=== PATIENT | male | born 1975 | race African-American/Black ===

== ENCOUNTER 2021-12-27 13:51 | Inpatient (IN) | payer OTHER ==
[~2021-12-27] VITALS: Ht 190.5 cm; Wt 63.5 kg
[2021-12-27] MEDS ORDERED: IV NS 0.9% 1,000 ML BAG IV ONE (14:30)
--- NOTE | 2021-12-27 14:35 | NUR ---
PT TAKEN TO CT VIA DANIELA
--- NOTE | 2021-12-27 14:55 | NUR ---
PT RETURNED FROM RADIOLOGY
[2021-12-27 14:59] LABS: BASOPHILS % (AUTO) 0.1 % (0.0-2.0); EOSINOPHILS % (AUTO) 1.1 % (0.0-6.0); HEMATOCRIT 22 % (39-51); HEMOGLOBIN 7.4 g/dL (13.5-17.5); LYMPHOCYTES # (AUTO) 0.4 K/uL (0.8-4.8); LYMPHOCYTES % (AUTO) 5.9 % (20.0-44.0); MEAN CORPUSCULAR HGB CONC 34 g/dl (31.0-36.0); MEAN CORPUSCULAR VOLUME 88 fL (80-96); MONOCYTES # (AUTO) 0.6 K/uL (0.1-1.30); MONOCYTES % (AUTO) 8.6 % (2.0-12.0); NEUTROPHILS # (AUTO) 5.6 K/uL (1.8-8.9); NEUTROPHILS % (AUTO) 84.3 % (43.0-81.0); PLATELET COUNT (AUTO) 223 K/uL (150-450); RED BLOOD CELL COUNT(AUTO) 2.52 MIL/uL (4.5-6.0); WHITE BLOOD COUNT (AUTO) 6.6 K/uL (4.3-11.0)
--- NOTE | 2021-12-27 15:00 | NUR ---
IV LINE ESTABLISHED ON LAC #20, BLOOD DRAWN AND SENT TO LAB
--- NOTE | 2021-12-27 15:04 | NUR ---
PT UNABLE TO PROVIDE URINE AT THIS TIME; URINAL AT BEDSIDE
[2021-12-27 15:19] LABS: ALBUMIN 1.7 g/dL (3.4-5.0); BILIRUBIN,DIRECT 0.1 mg/dL (0.0-0.2); BILIRUBIN,TOTAL 0.2 mg/dL (0.2-1.0); CALCIUM, SERUM 8.7 mg/dL (8.5-10.1)
[2021-12-27 15:23] LABS: POTASSIUM 5.5 mmol/L (3.5-5.1)
[2021-12-27 15:24] LABS: CREATININE 14.4 mg/dL (0.6-1.3)
--- NOTE | 2021-12-27 15:45 | NUR ---
covid swab done sent to lab
[2021-12-27] MEDS ORDERED: MAG HYDROX/AL HYDROX/SIMETH 30 ML UDC PO PRN (16:30)
[2021-12-27] MEDS ORDERED: HYDROCODONE/APAP 5/325MG TABLET PO PRN (16:30)
[2021-12-27] MEDS ORDERED: MAGNESIUM HYDROXIDE 30 ML UDC PO PRN (16:30)
[2021-12-27] MEDS ORDERED: LORAZEPAM INJ 2 MG/ML VIAL IV PRN (16:30)
[2021-12-27] MEDS ORDERED: TEMAZEPAM 15 MG CAPSULE PO PRN (16:30)
[2021-12-27] MEDS ORDERED: Z GUARD REMEDY 4 OZ OINT TP PRN (16:30)
[2021-12-27] MEDS ORDERED: ONDANSETRON HCL/PF 4 MG/2 ML VIAL IVP PRN (16:30)
[2021-12-27 16:46] LABS: BAND % (MANUAL) 2 % (0.0-5.0); LYMPHOCYTES % (MANUAL) 8 % (16-48); MONOCYTES % (MANUAL) 6 % (0-11.0); NEUTROPHILS % (MANUAL) 84 (42-76)
--- NOTE | 2021-12-27 18:32 | NUR ---
BED GIVEN 325-1
--- NOTE | 2021-12-27 18:46 | NUR ---
REPORT GIVEN TO ODALYS FOR THEODORE
[2021-12-27] MEDS ORDERED: MORPHINE SULFATE INJ 4 MG/ML DISP.SYRIN IV PRN (19:00)
--- NOTE | 2021-12-27 19:27 | NUR ---
MS RN NOTES RECEIVED REPORT FROM CHRISTIANO MORROW; AWAITING PATIENT ARRIVAL TO UNIT;
[2021-12-27 19:45] VITALS: BP 118/77
--- NOTE | 2021-12-27 20:11 | NUR ---
MS RN NOTES PATIENT ARRIVED ON UNIT 1944, VIA GURNEY; ACCOMPANIED BY ER STAFF AND MOTHER, PATIENT ALERT, A/OX4, BREATHING EVEN AND UNLABORED; NO SOB NOTED; TOLERATING ROOM AIR WELL; NO DISTRESS, PATIENT DENIES PAIN; PATIENT ABLE TO MAKE NEEDS KNOWN; PATIENT VERBALIZES THIS IS HIS FIRST TIME BEING HOSPITALIZED SINCE ; PATIENT REPORTED NO MEDICAL HX; VSS; BELONGS CHECKED, SKIN INTACT; L AC #20 INTACT AND PATENT, FLUSHING WELL; PATIENT AWARE MD ORDERED IVF; WILL ADMINISTER WHEN READY; PATIENT REPORTED HE WOULD LIKE TO HAVE A SNACK PRIOR TO BEING HOOKED ONTO IV FLUIDS; PATIENT ORIENTED TO STAFF AND UNIT; SAFETY PRECAUTIONS IMPLEMENTED; PER PATIENT, FEELS KIND OF DIZZY, MOST LIKELY FEELS DIZZY D/T BEING HUNGRY PATIENT STATED; PATIENT WAS INSTRUCTED TO USE CALL LIGHT IF NEEDS ASSISTANCE TO AMBULATE TO RESTROOM; PATIENT IS AMBULATORY WITH STEADY GAIT; BED LOCKED IN LOW POSITION; SIDE RAILSX2, CALL LIGHT WITHIN REACH; WILL CONT PLAN OF CARE
--- NOTE | 2021-12-27 20:20 | NUR ---
PT TRANSFERRED TO 3W VIA ACLS PROTOCOL. VSS.
[2021-12-27 21:20] VITALS: BP 118/77
[2021-12-27 21:23] LABS: IRON, SERUM 21 ug/dl (50-175); TOTAL IRON BINDING CAPACITY 150 ug/dl (250-450)
--- NOTE | 2021-12-27 22:48 | NUR ---
MS RN NOTES PER LAB, LAB RESULTED COULD BE FALSE POSITIVE, WILL RE-DO LAB IN THE AM;
--- NOTE | 2021-12-27 23:06 | NUR ---
MS RN NOTES SPOKE WITH PATIENTS MOTHER ON THE PHONE, PER MOTHER, PLEASE LET PATIENT GET SOME REST; PATIENT IS CURRENTLY SLEEPING, NOW; WILL CONNECT IV FLUIDS TO PATIENT ONCE HE IS AWAKE; PATIENT IS AWARE MD ORDERED IVF FOR HIM.
[2021-12-28] VITALS (8 sets, daily range): BP systolic 120–140; BP diastolic 75–95
[2021-12-28] MEDS: IV NS 0.9% 1,000 ML IV PRN ×2 (03:47→18:25)
--- NOTE | 2021-12-28 06:52 | NUR ---
MS RN CLOSING NOTES PATIENT RESTING IN BED COMFORTABLY, A/OX4, BREATHING EVEN AND UNLABORED; NO SOB NOTED; TOLERATING ROOM AIR WELL; NO DISTRESS, PATIENT DENIES PAIN; PATIENT AMBULATORY WITH STEADY GAIT; PATIENT ABLE TO MAKE NEEDS KNOWN; MOTHER MICHA WILL BE COMING LATER TODAY FOR VISITING HOURS; PATIENT AWARE; LAC #20G, INFUSING NS @ 125ML/HR; TOLERATING IVF WELL; ALL NEEDS RENDERED; SAFETY PRECAUTIONS IMPLEMENTED; BED LOCKED IN LOW POSITION; SIDE RAILSX2, CALL LIGHT WITHIN REACH; WILL ENDORSE THEODORE TO ONCOMING SHIFT
[2021-12-28 07:25] LABS: THYROID STIMULATING HORMONE 2.714 uIU/mL (0.358-3.74)
--- NOTE | 2021-12-28 07:28 | NUR ---
MS RN OPENING NOTE RECEIVED PT AWAKE AND RESTING IN BED. PT A/O X3-4, ABLE TO MAKE NEEDS KNOWN. PT ON RA, TOLERATING WELL. NO SOB NOTED. NOT IN ANY SIGN OF RESPIRATORY DISTRESS. IV ACCESS ON LAC G#20 INTACT AND PATENT WITH NS INFUSING AT 125ML/HR. SAFETY MEASURES IN PLACE: BED IN LOWEST AND LOCKED POSITION, SIDE RAILS UPX2, BED ALARM ON, AND CALL LIGHT WITHIN REACH. WILL CONTINUE TO MONITOR PT.
[2021-12-28 07:51] LABS: CALCIUM, SERUM 8.4 mg/dL (8.5-10.1); MAGNESIUM 2.6 mg/dL (1.8-2.4); PHOSPHORUS 7.5 mg/dL (2.5-4.9); POTASSIUM 5.4 mmol/L (3.5-5.1)
[2021-12-28 07:57] LABS: CREATININE 15.2 mg/dL (0.6-1.3)
[2021-12-28] MEDS: PANTOPRAZOLE 40 MG TABLET.DR PO SCH ×2 (08:16→09:10)
[2021-12-28 09:22] LABS: BASOPHILS % (AUTO) 0.2 % (0.0-2.0); EOSINOPHILS % (AUTO) 1.7 % (0.0-6.0); HEMATOCRIT 21 % (39-51); LYMPHOCYTES # (AUTO) 0.3 K/uL (0.8-4.8); LYMPHOCYTES % (AUTO) 6.9 % (20.0-44.0); MEAN CORPUSCULAR HGB CONC 32 g/dl (31.0-36.0); MEAN CORPUSCULAR VOLUME 89 fL (80-96); MONOCYTES # (AUTO) 0.4 K/uL (0.1-1.30); MONOCYTES % (AUTO) 8.9 % (2.0-12.0); NEUTROPHILS # (AUTO) 4.2 K/uL (1.8-8.9); NEUTROPHILS % (AUTO) 82.3 % (43.0-81.0); PLATELET COUNT (AUTO) 206 K/uL (150-450); RED BLOOD CELL COUNT(AUTO) 2.41 MIL/uL (4.5-6.0); WHITE BLOOD COUNT (AUTO) 5.1 K/uL (4.3-11.0)
[2021-12-28 10:22] LABS: HEMOGLOBIN 6.9 g/dL (13.5-17.5)
--- NOTE | 2021-12-28 10:30 | NUR ---
RN DELLA RECEIVED A CALL FROM [employer], JULY WITH CRITICAL LAB VALUE OF HEMOGLOBIN 6.9 AND [address]CRIT [address]. CALLED DR[address] MANTILLA AND MADE HIM AWARE OF THE CRITICAL LAB VALUE WITH ORDERS TO DO A TYPE AND SCREEN AND TO TRANSFUSE PT 1 PACK RBC. ORDERS CARRIED OUT.
--- NOTE | 2021-12-28 10:35 | NUR ---
RN NOTE ATTEMPTED TO OBTAIN CONSENT FOR BLOOD TRANSFUSION PT REFUSED AT THIS TIME. EXPLAINED RISK AND BENEFITS 3 TIMES, PT STILL STRONGLY REFUSED. PT STATED, "I WILL TALK TO MY MOTHER FIRST." CALLED PT'S MOM AND LEFT MESSAGE, AWAITING FOR HER CALL BACK.
--- NOTE | 2021-12-28 11:25 | NUR ---
RN NOTE CONSENT FOR BLOOD TRANSFUSION OBTAINED AND SIGNED BY PT.
--- NOTE | 2021-12-28 11:40 | NUR ---
RN NOTE PT REFUSED CHICAS CATHETER INSERTION, EXPLAINED RISK AND BENEFITS 3 TIMES STILL STRONGLY REFUSED. PT STATED, "I DON'T NEED IT". MADE CHARGE NURSE, JEREMY AWARE. JEREMY WENT TO THE PT'S ROOM, ALSO OFFERED THE CHICAS CATHETER AND EXPLAINED THE RISK AND BENEFITS TO PT, STILL STRONGLY REFUSED. PT REMAINS A/O X4.
[2021-12-28 12:29] LABS: BAND % (MANUAL) 3 % (0.0-5.0); LYMPHOCYTES % (MANUAL) 8 % (16-48); NEUTROPHILS % (MANUAL) 85 (42-76)
[2021-12-28 12:30] LABS: MONOCYTES % (MANUAL) 4 % (0-11.0)
[2021-12-28] MEDS: SODIUM POLYSTYRENE SULF. PWD 15 GM UDC PO ONE ×3 (12:45→13:21)
--- NOTE | 2021-12-28 12:53 | NUR ---
RN NOTE PT REFUSED THE SODIUM POLYSTYRENE SULFONATE THAT WAS SCHEDULED AT 1200. EXPLAINED TO THE PATIENT THAT HIS CURRENT POTASSIUM LEVEL IS ELEVATED AT 5.4 AND THE MEDICATION WILL HELP DECREASE AND NORMALIZE THE POTASSIUM LEVEL BUT PT STILL REFUSED. EXPLAINED THE RISK AND BENEFITS X3, STILL STRONGLY REFUSED. PT STATED, "I WILL TAKE IT LATER, YOU GUYS STARTING TO IRRITATE ME." WILL OFFER AGAIN LATER AND MONITOR PT FOR S/S OF HYPERKALEMIA.
--- NOTE | 2021-12-28 13:21 | NUR ---
RN NOTE OFFERED THE SODIUM POLYSTYRENE SULFONATE THAT WAS SCHEDULED AT 1200. PT AGREED. SODIUM POLYSTYRENE SULFONATE ADMINISTERED ORDERED.
--- NOTE | 2021-12-28 15:16 | NUR ---
RN NOTE BLOOD VERIFIED AND WITNESSED BY CHRISTIANO CALABRESE. BLOOD TRANSFUSION STARTED. VITAL SIGNS PRIOR TO BLOOD TRANSFUSION IS BP 130/87, P 92, TEMP 98.0, R 18, SPO2 95%. WILL CONTINUE TO MONITOR PT.
[2021-12-28 15:24] LABS: BILIRUBIN,URINE NEGATIVE (NEGATIVE); COLOR,URINE YELLOW (YELLOW); LEUKOCYTE ESTERASE ,URINE NEGATIVE (NEGATIVE); NITRITE, URINE NEGATIVE (NEGATIVE); PROTEIN,URINE >=300 mg/dl (NEGATIVE); UGLUCOSE NEGATIVE (NEGATIVE); UROBILINOGEN,URINE 0.2 EU/dL (0.2)
--- NOTE | 2021-12-28 16:02 | NUR ---
RN NOTE AFTER AN ADDITIONAL 30 MINUTES OF BLOOD TRANSFUSION. NO ADVERSE REACTIONS NOTED. NO SIGNS OF FEVER OR RASHES. NO C/O CHILLS VOICED OUT FROM PT AT THIS TIME. VITAL SIGNS: BP 140/87, P 95, R 20, TEMP 98.9, SPO2 100%. WILL CONTINUE TO MONITOR PT.
[2021-12-28 16:06] LABS: BACTERIA,URINE Rare /HPF (None Seen); RBC,URINE 0-2 /HPF (0-2); SQUAMOUS EPITHELIAL CELL,UR Few /HPF (None Seen); WBC,URINE 0-2 /HPF (0-3)
[2021-12-28 16:07] LABS: OCCULT BLOOD STOOL NEGATIVE (NEGATIVE)
--- NOTE | 2021-12-28 17:01 | NUR ---
RN NOTE AFTER ANOTHER HOUR OF BLOOD TRANSFUSION. NO ADVERSE REACTIONS NOTED. NO SIGNS OF FEVER OR RASHES. NO C/O CHILLS VOICED OUT FROM PT AT THIS TIME. VITAL SIGNS: BP 138/84, P 88, R 20, TEMP 98.4, SPO2 100%. WILL CONTINUE TO MONITOR PT.
--- NOTE | 2021-12-28 18:24 | NUR ---
RN NOTE BLOOD TRANSFUSION ENDED AND COMPLETED. NO ADVERSE REACTIONS NOTED. NO SIGNS OF FEVER OR RASHES. NO C/O CHILLS VOICED OUT FROM PT AT THIS TIME. VITAL SIGNS: BP 125/75, P 92, R 20, TEMP 99.0, SPO2 100%.
--- NOTE | 2021-12-28 19:17 | NUR ---
MS RN CLOSING NOTE PT AWAKE AND RESTING IN BED. PT A/O X3-4, ABLE TO MAKE NEEDS KNOWN. PT ON RA, TOLERATING WELL. NO SOB NOTED. NOT IN ANY SIGN OF RESPIRATORY DISTRESS. IV ACCESS ON LAC G#20 INTACT AND PATENT WITH NS INFUSING AT 125ML/HR. ALL NEEDS ATTENDED. KEPT CLEAN AND COMFORTABLE. SAFETY MEASURES IN PLACE: BED IN LOWEST AND LOCKED POSITION, SIDE RAILS UPX2, BED ALARM ON, AND CALL LIGHT WITHIN REACH. ENDORSED TO SUPERVISOR INTELLIGENCE ANALYST NURSE FOR THEODORE.
--- NOTE | 2021-12-28 19:24 | NUR ---
MS RN OPENING NOTE RECEIVED PT AWAKE AND RESTING IN BED AA/O X3-4, ABLE TO MAKE NEEDS KNOWN. PT ON RA, TOLERATING WELL. NO SOB/DISTRESS NOTED, IV ACCESS ON LAC G#20 INTACT AND PATENT WITH NS INFUSING AT 125ML/HR. SAFETY MEASURES IN PLACE: BED IN LOWEST AND LOCKED POSITION, SIDE RAILS UPX2, BED ALARM ON, AND CALL LIGHT WITHIN REACH. WILL CONTINUE TO MONITOR.
--- NOTE | 2021-12-29 06:22 | NUR ---
MS RN OPENING NOTE; PT AWAKE AND RESTING IN BED AA/O X3-4, ABLE TO MAKE NEEDS KNOWN. PT ON RA, TOLERATING WELL. NO SOB/DISTRESS NOTED, IV ACCESS ON LAC G#20 INTACT AND PATENT WITH NS INFUSING AT 125ML/HR.DUE MEDS GIVEN ORDERED,ALL NEEDS ATTENDED, SAFETY MEASURES IN PLACE: BED IN LOWEST AND LOCKED POSITION, SIDE RAILS UPX2, BED ALARM ON, AND CALL LIGHT WITHIN REACH. WILL ENDORSED TO NEXT SHIFT.
[2021-12-29 07:09] LABS: IMMUNOGLOBULIN A, SERUM 533 mg/dL (90-386); IMMUNOGLOBULIN G, SERUM 1651 mg/dL (603-1613); IMMUNOGLOBULIN M, SERUM 182 mg/dL (20-172)
--- NOTE | 2021-12-29 07:45 | NUR ---
MS RN OPENING NOTES: RECEIVED PT AWAKE AND RESTING IN BED. PT A/O X3-4, ABLE TO MAKE NEEDS KNOWN. PT ON RA, TOLERATING WELL. NO SOB NOTED. NOT IN ANY SIGN OF RESPIRATORY DISTRESS. IV ACCESS ON LAC G#20 INTACT AND PATENT WITH NS INFUSING AT 125ML/HR. SAFETY MEASURES IN PLACE: BED IN LOWEST AND LOCKED POSITION, SIDE RAILS UPX2, BED ALARM ON, AND CALL LIGHT WITHIN REACH, WILL CONTINUE TO MONITOR PT.
[2021-12-29 08:00] VITALS: BP 131/80
[2021-12-29 08:01] LABS: POTASSIUM 4.8 mmol/L (3.5-5.1)
[2021-12-29 08:07] LABS: BASOPHILS % (AUTO) 0.4 % (0.0-2.0); EOSINOPHILS % (AUTO) 1.8 % (0.0-6.0); HEMATOCRIT 25 % (39-51); HEMOGLOBIN 8.2 g/dL (13.5-17.5); LYMPHOCYTES # (AUTO) 0.5 K/uL (0.8-4.8); LYMPHOCYTES % (AUTO) 7.7 % (20.0-44.0); MEAN CORPUSCULAR HGB CONC 33 g/dl (31.0-36.0); MEAN CORPUSCULAR VOLUME 89 fL (80-96); MONOCYTES # (AUTO) 0.6 K/uL (0.1-1.30); MONOCYTES % (AUTO) 9.3 % (2.0-12.0); NEUTROPHILS # (AUTO) 5.1 K/uL (1.8-8.9); NEUTROPHILS % (AUTO) 80.8 % (43.0-81.0); PLATELET COUNT (AUTO) 197 K/uL (150-450); RED BLOOD CELL COUNT(AUTO) 2.78 MIL/uL (4.5-6.0); WHITE BLOOD COUNT (AUTO) 6.4 K/uL (4.3-11.0)
[2021-12-29 08:08] LABS: CREATININE 15.3 mg/dL (0.6-1.3)
[2021-12-29] MEDS: PANTOPRAZOLE 40 MG TABLET.DR PO SCH (08:23)
[2021-12-29] MEDS: IV NS 0.9% 1,000 ML IV PRN ×3 (09:58→23:09)
[2021-12-29 11:07] LABS: *SPE A/G RATIO 0.4 (0.7-1.7); *SPE ALPHA-1-GLOBULIN 0.4 g/dL (0.0-0.4); *SPE ALPHA-2-GLOBULIN 0.9 g/dL (0.4-1.0); *SPE BETA GLOBULIN 1.1 g/dL (0.7-1.3); *SPE M-SPIKE Not Observed g/dL (Not Observed)
[2021-12-29 11:19] LABS: BILIRUBIN,URINE NEGATIVE (NEGATIVE); COLOR,URINE YELLOW (YELLOW); LEUKOCYTE ESTERASE ,URINE NEGATIVE (NEGATIVE); NITRITE, URINE NEGATIVE (NEGATIVE); PROTEIN,URINE >=300 mg/dl (NEGATIVE); UGLUCOSE 100 MG/DL mg/dL (NEGATIVE); UROBILINOGEN,URINE 0.2 EU/dL (0.2)
[2021-12-29 11:41] LABS: BACTERIA,URINE Rare /HPF (None Seen); RBC,URINE NONE SEEN /HPF (0-2); SQUAMOUS EPITHELIAL CELL,UR Few /HPF (None Seen); WBC,URINE 0-2 /HPF (0-3)
--- NOTE | 2021-12-29 11:45 | NUR ---
MS RN NOTES: PT DECLINED CHICAS CATH INSERTION. RN EXPLAINED RATIONAL OF PROCEDURE, VERBALIZED UNDERSTANDING BUT REFUSED, PT STATES HE USES URINAL FINE.
[2021-12-29 11:57] LABS: CREATININE, URINE 133.8 MG/DL (30.0-125.0)
--- NOTE | 2021-12-29 14:00 | NUR ---
MS RN NOTES: RICA FERRER INITIATED PER MD ORDER, FACE SHEET FAXED TO [employer].
[2021-12-29] MEDS: ACETAMINOPHEN 325 MG TABLET PO PRN (16:33)
--- NOTE | 2021-12-29 16:33 | NUR ---
MS RN NOTES: PT GIVEN ANTIPYRETIC FOR TEMP 101.2. RN EXPLAINED TEMPORARY HD CATH INSERTION, PT VERBALIZED UNDERSTANDING AND SIGNED CONSENT, PLACED IN CHART.
[2021-12-29 17:00] VITALS: BP 132/88
--- NOTE | 2021-12-29 20:42 | NUR ---
MS RN CLOSING NOTES: PT AWAKE AND RESTING IN BED. PT A/O X3-4, ABLE TO MAKE NEEDS KNOWN. PT ON RA, TOLERATING WELL. NO SOB NOTED. NOT IN ANY SIGN OF RESPIRATORY DISTRESS. IV ACCESS ON LAC G#20 INTACT AND PATENT WITH NS INFUSING AT 200 ML/HR. ALL NEEDS ATTENDED. KEPT CLEAN AND COMFORTABLE. SAFETY MEASURES IN PLACE: BED IN LOWEST AND LOCKED POSITION, SIDE RAILS UPX2, BED ALARM ON, CALL LIGHT TABLE AND URINAL WITHIN REACH. ENDORSED TO FORENSIC NURSE NURSE FOR THEODORE
[2021-12-29] MEDS: MIRTAZAPINE 15 MG TABLET PO SCH (21:08)
--- NOTE | 2021-12-30 06:21 | NUR ---
MS RN OPENING NOTE; PT AWAKE AND RESTING IN BED AA/O X3-4, ABLE TO MAKE NEEDS KNOWN. PT ON RA, TOLERATING WELL. NO SOB/DISTRESS NOTED, IV ACCESS ON LAC G#20 AND HD CATH ON R NECK,INTACT AND PATENT WITH NS INFUSING AT 200ML/HR.DUE MEDS GIVEN ORDERED,ALL NEEDS ATTENDED, SAFETY MEASURES IN PLACE: BED IN LOWEST AND LOCKED POSITION, SIDE RAILS UPX2, BED ALARM ON, AND CALL LIGHT WITHIN REACH. WILL ENDORSED TO NEXT SHIFT.
[2021-12-30 07:00] VITALS: BP 123/86
--- NOTE | 2021-12-30 07:45 | NUR ---
MS RN OPENING NOTES; RECEIVED PT AWAKE AND RESTING IN BED. PT A/O X3-4, ABLE TO MAKE NEEDS KNOWN. PT ON RA, TOLERATING WELL. NO SOB NOTED. NOT IN ANY SIGN OF RESPIRATORY DISTRESS, DENIES PAIN AT THIS TIME. IV ACCESS DISLODGED. PT DOES NOT KNOW WHEN IV ACCESS GOT DISCONNECTED, STATES "MAYBE EARLY THIS MORNING, I DON'T REMEMBER". RN WILL INSERT NEW IV ACCESS. SAFETY MEASURES IN PLACE: BED IN LOWEST AND LOCKED POSITION, SIDE RAILS UPX2, BED ALARM ON, CALL LIGHT WITHIN REACH, FAMILY AT BEDSIDE, WILL CONTINUE WITH PLAN OF CARE DURING SHIFT.
[2021-12-30 08:09] LABS: CALCIUM, SERUM 8.1 mg/dL (8.5-10.1); POTASSIUM 4.6 mmol/L (3.5-5.1)
[2021-12-30 08:19] LABS: CREATININE 15.4 mg/dL (0.6-1.3)
[2021-12-30 09:07] LABS: ERYTHROPOIETIN 6.8 mIU/mL (2.6-18.5)
--- NOTE | 2021-12-30 10:15 | NUR ---
S/P HEMODIALYSIS, OUTPUT = 500 CC, STARTED 814,
[2021-12-30] MEDS: PANTOPRAZOLE 40 MG TABLET.DR PO SCH (10:48)
[2021-12-30 11:51] LABS: BASOPHILS % (AUTO) 0.3 % (0.0-2.0); EOSINOPHILS % (AUTO) 0.6 % (0.0-6.0); HEMATOCRIT 28 % (39-51); HEMOGLOBIN 9.2 g/dL (13.5-17.5); LYMPHOCYTES # (AUTO) 0.4 K/uL (0.8-4.8); LYMPHOCYTES % (AUTO) 5.1 % (20.0-44.0); MEAN CORPUSCULAR HGB CONC 33 g/dl (31.0-36.0); MEAN CORPUSCULAR VOLUME 90 fL (80-96); MONOCYTES # (AUTO) 0.7 K/uL (0.1-1.30); NEUTROPHILS # (AUTO) 7.4 K/uL (1.8-8.9); PLATELET COUNT (AUTO) 190 K/uL (150-450); RED BLOOD CELL COUNT(AUTO) 3.12 MIL/uL (4.5-6.0); WHITE BLOOD COUNT (AUTO) 8.6 K/uL (4.3-11.0)
[2021-12-30] MEDS ORDERED: NEPRO VAN 237 ML CAN PO PRN (14:00)
[2021-12-30 16:00] VITALS: BP 137/89
[2021-12-30] MEDS: IV NS 0.9% 1,000 ML IV PRN (17:06)
--- NOTE | 2021-12-30 19:44 | NUR ---
MS ALVARADO NOTES: PT ASLEEP IN BED. PT A/O X3-4, ABLE TO MAKE NEEDS KNOWN. PT ON RA, TOLERATING WELL. NO S/S OF SOB NOTED. DENIES PAIN AND NOT IN ACUTE DISTRESS AT THE MOMENT. IV ACCESS ON RAC #22 INTACT AND PATENT, SL. S/P HD @ 1015; OUTPUT 500CC. ALL NEEDS ATTENDED. KEPT CLEAN AND COMFORTABLE. SAFETY MEASURES IN PLACE: BED IN LOWEST AND LOCKED POSITION, SIDE RAILS UPX2, BED ALARM ON, CALL LIGHT TABLE AND URINAL WITHIN REACH. ENDORSED TO BIOCHEMISTRY TECHNOLOGIST NURSE FOR THEODORE Addendum: 12/30/21 at 1947 by MARIAELENA RUDOLPH RN MS ALVARADO CLOSING NOTES:
--- NOTE | 2021-12-30 19:45 | NUR ---
MS RN OPENING NOTE RECEIVED PATIENT IN BED; AWAKE, ALERT AND ORIENTED X 4. BREATHING EVEN AND NONLABORED. ON ROOM AIR; TOLERATING WELL. NOT IN ANY FORM OF RESPIRATORY DISTRESS. DENIES ANY PAIN OR DISCOMFORT AT THIS TIME. WITH RIGHT INTERNAL JUGULAR HD CATHETER; INTACT. WITH IV ACCESS ON RIGHT ANTECUBITAL 22g; PATENT, INTACT AND SALINE LOCKED. ABLE TO MAKE NEEDS KNOWN. SAFETY MEASURES IMPLEMENTED: CALL LIGHT AND TABLE WITHIN REACH, SIDE RAILS UP X 2, BED IN LOWEST LOCKED POSITION. WILL CONTINUE PLAN OF CARE.
[2021-12-30 20:00] VITALS: BP 127/78
[2021-12-30] MEDS: MIRTAZAPINE 15 MG TABLET PO SCH (22:45)
--- NOTE | 2021-12-30 22:45 | NUR ---
RN NOTE REMERON 15 MG PO HELD PER PATIENT'S REQUEST. KEPT COMFORTABLE IN BED.
--- NOTE | 2021-12-31 06:50 | NUR ---
MS RN CLOSING NOTE PATIENT IN BED; AWAKE, A/OR X 4. STABLE ON ROOM AIR. RESPIRATION EQUAL AND UNLABORED. IN NO ACUTE DISTRESS. NO C/O ANY PAIN OR DISCOMFORT. WITH RIJ HD CATH; INTACT. IV SITE ON RIGHT AC 22g; PATENT, INTACT AND SALINE LOCKED. ALL NEEDS MET. SAFETY MEASURES IN PLACE: CALL LIGHT AND TABLE WITHIN REACH, SIDE RAILS UP X 2, BED IN LOWEST LOCKED POSITION. ENDORSED TO MORNING SHIFT FOR THEODORE.
[2021-12-31 07:00] VITALS: BP 164/82
--- NOTE | 2021-12-31 07:38 | NUR ---
MS RN OPENING NOTE RECEIVED PATIENT AWAKE IN BED, ALERT AND ORIENTED X 4, ABLE TO MAKE NEEDS KNOWN, BREATHING EVEN AND UNLABORED. ON ROOM AIR; TOLERATING WELL. NO NOTED FORM OF RESPIRATORY DISTRESS. DENIES ANY PAIN OR DISCOMFORT. WITH RIGHT INTERNAL JUGULAR HD CATHETER WITH CLEAN DRESSING. WITH IV ACCESS ON RIGHT AC G#22 PATENT, INTACT AND SALINE LOCKED. PATIENT IS FOR HD TODAY. SAFETY MEASURES IN PLACE: CALL LIGHT AND TABLE WITHIN REACH, SIDE RAILS UP X 2, BED IN LOWEST LOCKED POSITION. WILL CONTINUE PLAN OF CARE.
[2021-12-31] MEDS: PANTOPRAZOLE 40 MG TABLET.DR PO SCH (07:52)
[2021-12-31 07:58] LABS: CALCIUM, SERUM 7.7 mg/dL (8.5-10.1)
[2021-12-31 08:39] LABS: CREATININE 11.3 mg/dL (0.6-1.3)
--- NOTE | 2021-12-31 10:50 | NUR ---
RN NOTES - S/P HEMODIALYSIS HEMODIALYSIS RAN 2.5 HOURS FROM 0800 WITHOUT ANY COMPLICATIONS. 1000 ML OF FLUIDS OUT.
[2021-12-31 13:38] LABS: HEMOGLOBIN 7.7 g/dL (13.5-17.5); LYMPHOCYTES # (AUTO) 0.2 K/uL (0.8-4.8); MONOCYTES # (AUTO) 0.5 K/uL (0.1-1.30); NEUTROPHILS # (AUTO) 3.9 K/uL (1.8-8.9); WHITE BLOOD COUNT (AUTO) 4.7 K/uL (4.3-11.0)
[2021-12-31 13:53] LABS: BASOPHILS % (AUTO) 0.3 % (0.0-2.0); EOSINOPHILS % (AUTO) 2.2 % (0.0-6.0); HEMATOCRIT 23 % (39-51); LYMPHOCYTES % (AUTO) 4.2 % (20.0-44.0); MEAN CORPUSCULAR HGB CONC 34 g/dl (31.0-36.0); MEAN CORPUSCULAR VOLUME 88 fL (80-96); MONOCYTES % (AUTO) 10.2 % (2.0-12.0); NEUTROPHILS % (AUTO) 83.1 % (43.0-81.0); PLATELET COUNT (AUTO) 168 K/uL (150-450)
[2021-12-31 14:13] LABS: BAND % (MANUAL) 3 % (0.0-5.0); EOSINOPHILS % (MANUAL) 1 % (0-4); LYMPHOCYTES % (MANUAL) 6 % (16-48); MONOCYTES % (MANUAL) 9 % (0-11.0); NEUTROPHILS % (MANUAL) 81 (42-76)
[2021-12-31 15:06] LABS: *HIV-1 log10 RNA 4.964 (.)
[2021-12-31 16:00] VITALS: BP 129/82
--- NOTE | 2021-12-31 19:28 | NUR ---
MS RN CLOSING NOTE PATIENT AWAKE IN BED WITH FAMILY, ALERT AND ORIENTED X 4, ABLE TO MAKE NEEDS KNOWN, BREATHING EVEN AND UNLABORED. ON ROOM AIR; TOLERATING WELL. NO NOTED FORM OF RESPIRATORY DISTRESS. DENIES ANY PAIN OR DISCOMFORT. S/P HD. ALL NEEDS MET, ALL MEDS GIVEN. SAFETY MEASURES MAINTAINED: CALL LIGHT AND TABLE WITHIN REACH, SIDE RAILS UP X 2, BED IN LOWEST LOCKED POSITION. ENDORSE TO LEASE ANALYST.
--- NOTE | 2021-12-31 19:45 | NUR ---
MS RN OPENING NOTE RECEIVED PATIENT IN BED; AWAKE, ALERT AND ORIENTED X 4. BREATHING EVEN AND NONLABORED. ON ROOM AIR; TOLERATING WELL. NOT IN ANY FORM OF RESPIRATORY DISTRESS. NO C/O ANY PAIN OR DISCOMFORT AT THIS TIME. WITH RIGHT INTERNAL JUGULAR HD CATHETER; INTACT. WITH IV ACCESS ON RIGHT ANTECUBITAL 22g; PATENT, INTACT AND SALINE LOCKED. ABLE TO MAKE NEEDS KNOWN. SAFETY MEASURES IMPLEMENTED: CALL LIGHT AND TABLE WITHIN REACH, SIDE RAILS UP X 2, BED IN LOWEST LOCKED POSITION. WILL CONTINUE PLAN OF CARE.
[2021-12-31 20:00] VITALS: BP 128/70
[2021-12-31] MEDS: MIRTAZAPINE 15 MG TABLET PO SCH (21:38)
--- NOTE | 2021-12-31 21:38 | NUR ---
RN NOTE MIRTAZAPINE 15 MG 1 TAB PO HELD; PATIENT REFUSED THE MEDICINE. PER PATIENT, HE DIDN'T EAT DINNER AND DON'T WANT TO TAKE THE MEDICATION. ENCOURAGED PT ABOUT FOLLOWING MEDICAL REGIMEN; STILL REFUSED TO TAKE THE PILL.
[2022-01-01 07:00] VITALS: BP 127/70
--- NOTE | 2022-01-01 07:00 | NUR ---
MS RN CLOSING NOTE PATIENT IN BED; AWAKE, A/O X 4. STABLE ON ROOM AIR. RESPIRATION EQUAL AND UNLABORED. IN ACUTE DISTRESS.DENIES ANY PAIN OR DISCOMFORT AT THIS TIME. WITH RIGHT INTERNAL JUGULAR HD CATHETER; INTACT. WITH IV ACCESS ON RIGHT AC 22g; PATENT, INTACT AND SALINE LOCKED. NEEDS ATTENDED. SAFETY MEASURES IN PLACE: CALL LIGHT AND TABLE WITHIN REACH, SIDE RAILS UP X 2, BED IN LOWEST LOCKED POSITION. ENDORSED TO MORNING SHIFT FOR THEODORE.
[2022-01-01 07:04] LABS: CALCIUM, SERUM 7.7 mg/dL (8.5-10.1); POTASSIUM 3.9 mmol/L (3.5-5.1)
--- NOTE | 2022-01-01 07:43 | NUR ---
MS RN OPENING NOTE RECEIVED PATIENT AWAKE IN BED, ALERT AND ORIENTED X 4, ABLE TO MAKE NEEDS KNOWN, BREATHING EVEN AND UNLABORED. ON ROOM AIR; TOLERATING WELL. NO NOTED FORM OF RESPIRATORY DISTRESS. DENIES ANY PAIN OR DISCOMFORT AT THIS TIME. WITH RIGHT INTERNAL JUGULAR HD CATHETER WITH CLEAN DRESSING. WITH IV ACCESS ON RIGHT AC G#22 PATENT, INTACT AND SALINE LOCKED. SAFETY MEASURES IN PLACE: CALL LIGHT AND TABLE WITHIN REACH, SIDE RAILS UP X 2, BED IN LOWEST LOCKED POSITION. WILL CONTINUE PLAN OF CARE.
[2022-01-01] MEDS: PANTOPRAZOLE 40 MG TABLET.DR PO SCH (07:56)
[2022-01-01 08:00] VITALS: BP 127/70
[2022-01-01 08:01] LABS: CREATININE 9.2 mg/dL (0.6-1.3)
--- NOTE | 2022-01-01 08:45 | NUR ---
RN NOTES - HEMODIALYSIS PATIENT STARTED ROUTINE HEMODIALYSIS AT 0844.
--- NOTE | 2022-01-01 10:46 | NUR ---
RN NOTES - HEMODIALYSIS PATIENT DONE WITH HD TREATMENT, 1000 ML OF FLUID OUT, VS STABLE - BP-127/87 AND HR -67, HD SITE IS INTACT WITH NO BLEEDING NOTED.
[2022-01-01 16:00] VITALS: BP_SYST 130; BP_DIAS 76; BP_DIAS 83
[2022-01-01 17:28] LABS: BASOPHILS % (AUTO) 0.4 % (0.0-2.0); EOSINOPHILS % (AUTO) 4.5 % (0.0-6.0); HEMATOCRIT 24 % (39-51); LYMPHOCYTES # (AUTO) 0.4 K/uL (0.8-4.8); LYMPHOCYTES % (AUTO) 9.5 % (20.0-44.0); MEAN CORPUSCULAR HGB CONC 33 g/dl (31.0-36.0); MEAN CORPUSCULAR VOLUME 88 fL (80-96); MONOCYTES # (AUTO) 0.4 K/uL (0.1-1.30); MONOCYTES % (AUTO) 8.8 % (2.0-12.0); NEUTROPHILS # (AUTO) 3.1 K/uL (1.8-8.9); NEUTROPHILS % (AUTO) 76.8 % (43.0-81.0); PLATELET COUNT (AUTO) 158 K/uL (150-450); RED BLOOD CELL COUNT(AUTO) 2.74 MIL/uL (4.5-6.0); WHITE BLOOD COUNT (AUTO) 4.1 K/uL (4.3-11.0)
--- NOTE | 2022-01-01 17:30 | NUR ---
RN NOTES PT'S MOM, MICHA, APPROACHED ME REGARDING PT'S WATER INTAKE BECAUSE SON IS ASKING FOR HER TO BRING 2 500 ML BOTTLE OF WATER FROM HOME. MICHA ASKED ME TO REMIND THE PATIENT. REMINDED THE PT REGARDING THE IMPORTANCE OF LIMITING FREE WATER INTAKE AND STRICT I/O, PATIENT REPLIED THAT HE KNOWS WHAT HE IS DOING AND WILL NOT DRINK A LOT BUT STILL WANTS HIS MOM TO BRING THE BOTTLES. PATIENT ONLY ABLE TO PASS 65 ML OF URINE AND HAD AN INTAKE OF ABOUT 2 CUPS (480 ML).
--- NOTE | 2022-01-01 18:34 | NUR ---
MS RN CLOSING NOTE PATIENT AWAKE IN BED, ALERT AND ORIENTED X 4, ABLE TO MAKE NEEDS KNOWN, BREATHING EVEN AND UNLABORED. ON ROOM AIR; TOLERATING WELL. NO NOTED FORM OF RESPIRATORY DISTRESS. DENIES ANY PAIN OR DISCOMFORT AT THIS TIME. WITH RIGHT INTERNAL JUGULAR HD CATHETER WITH CLEAN DRESSING. S/P HD TODAY WITH 1000 ML OUT. WITH IV ACCESS ON RIGHT AC G#22 PATENT, INTACT AND SALINE LOCKED. HEALTH TEACHINGS PROVIDED REGARDING DIET AND STRICT I/O. ALL DUE MEDS GIVEN, ALL NEEDS MET. SAFETY MEASURES MAINTAINED: CALL LIGHT AND TABLE WITHIN REACH, SIDE RAILS UP X 2, BED IN LOWEST LOCKED POSITION. WILL CONTINUE PLAN OF CARE.
--- NOTE | 2022-01-01 19:04 | NUR ---
RN NOTES: RECEIVED AWAKE ON BED, LYING COMFORTABLY, HE IS BUSY WITH HIS PHONE, A/OX4, ON ROOM AIR, NON LABORED BREATHING, WITH RIJ HD CATH, DRESSING DRY AND INTACT, ON BRP, MONITOR I/O, SKIN IS INTACT, CORINE Salmeron#22, SL, HD DONE TODAY, FOR HD AND LABS TOMORROW, ORIENTED TO UNIT AND STAFF.KEPT CALL LIGHT WITHIN EASY REACH, SAFETY PRECAUTION OBSERVED.
[2022-01-01] MEDS: ACETAMINOPHEN 325 MG TABLET PO PRN (19:53)
--- NOTE | 2022-01-01 19:53 | NUR ---
RN NOTES: FEVERISH T-100.2, REFUSED FOR SPONGE BATH AND ICE PACK, HE REQUEST FOR HIS TYLENOL, GIVEN.
[2022-01-01 20:00] VITALS: BP 131/80
--- NOTE | 2022-01-01 20:57 | NUR ---
RN NOTES: - AROUND 1999 RE-CHECKED TEMP-98.9, HE FEELS MUCH BETTER, INITIALLY HE ASKED FOR SNACK AFTER ORDER BOOKER BROUGHT FOR HIM HE REFUSED.
[2022-01-01] MEDS: MIRTAZAPINE 15 MG TABLET PO SCH (21:26)
--- NOTE | 2022-01-01 21:31 | NUR ---
RN NOTES: AWAKE CONVERSANT , HE SAID HE FEELS BETTER AFTER THE TYLENOL, WATCHING HER MOVIE IN HIS PHONE, MED COMPLIANT.
--- NOTE | 2022-01-01 22:00 | NUR ---
RN NOTES: -HIS MOTHER CALLED, GIVEN UPDATES REGARDING THE PATIENT, SHE JUST SPOKE WITH HIM, SHE WONT COME TOMORROW BY HER SISTER AND NIECE WILL COME TO TAKE CARE OF HIM SHE WILL COME IN THE AFTERNOON.WILL ENDORSED TO NEXT SHIFT TOMORROW.
--- NOTE | 2022-01-02 02:00 | NUR ---
RN NOTES: SPOKE TO HD NURSE TRISH HD SCHEDULE WILL DEPEND ON PATIENT'S LABS. TODAY'S LAB IS OKAY, IF LABS IS GOOD TOMORROW HE WILL HAVE HD ON MONDAY. CHRISTIANO CHAMBERS STATED A STRICT I AND O FOR PT.
[2022-01-02 06:26] LABS: BASOPHILS % (AUTO) 0.3 % (0.0-2.0); EOSINOPHILS % (AUTO) 5.6 % (0.0-6.0); HEMATOCRIT 27 % (39-51); HEMOGLOBIN 8.7 g/dL (13.5-17.5); LYMPHOCYTES # (AUTO) 0.2 K/uL (0.8-4.8); LYMPHOCYTES % (AUTO) 5.8 % (20.0-44.0); MEAN CORPUSCULAR HGB CONC 33 g/dl (31.0-36.0); MEAN CORPUSCULAR VOLUME 89 fL (80-96); MONOCYTES # (AUTO) 0.3 K/uL (0.1-1.30); MONOCYTES % (AUTO) 7.4 % (2.0-12.0); NEUTROPHILS # (AUTO) 3.3 K/uL (1.8-8.9); NEUTROPHILS % (AUTO) 80.9 % (43.0-81.0); PLATELET COUNT (AUTO) 161 K/uL (150-450); RED BLOOD CELL COUNT(AUTO) 2.99 MIL/uL (4.5-6.0)
--- NOTE | 2022-01-02 06:56 | NUR ---
RN NOTES: ABLE TO SLEEP AND REST AT SHORT INTERVALS, AWAKE IN BETWEEN,NEEDS ANTICIPATED, AMBULATORY AROUND HIS ROOM, FOR LABS THIS MORNING, ENDORSED FOR CONTINUITY OF CARE, F/U WITH RESIDENTIAL LIVING ASSISTANT 1 WEEK OF DISCHARGE, F/U WITH [facility] AND F/U WITH RD-01/03, KEPT ON CLOSE WATCH, NON LABORED BREATHING, NO PAIN OR DISCOMFORT.
--- NOTE | 2022-01-02 07:00 | NUR ---
MS RN OPENING NOTES: RECEIVED PT IN BED, ALERT AND ORIENTED X 4. NO SOB OR CARDIAC DISTRESS NOTED, APPEARED WEAK BUT DENIES PAIN. IV ACCESS ON RAC G#20 PATENT AND INTACT AND SALINE LOCKED. R CAROTID HD ACCESS NOTED. MAINTAINED SAFETY PRECAUTIONS: BED LOCKED AND IN LOWEST POSITION. CALL LIGHT IN EASY REACH FOR HELP. WILL MONITOR PT ACCORDINGLY. KEPT RESTED AND COMFORTABLE.
[2022-01-02 07:09] LABS: BILIRUBIN,TOTAL 0.3 mg/dL (0.2-1.0); TOTAL PROTEIN, SERUM 6.2 g/dL (6.4-8.2)
[2022-01-02 07:13] LABS: ALBUMIN 1.2 g/dL (3.4-5.0); CREATININE 8.8 mg/dL (0.6-1.3)
[2022-01-02] MEDS: PANTOPRAZOLE 40 MG TABLET.DR PO SCH (07:42)
--- NOTE | 2022-01-02 14:30 | NUR ---
RN NOTES: COLLECTED URINE AND CALLED LAB FOR REGRINDER. RN GATHERING SIGNATURE FROM PATIENT FOR TOMORROW'S PROCEDURE US GUIDED NEEDLE BIOPY OF THE KIDNEY. PER PATIENT HE WILL SIGN TOMORROW AM, WILL ENDORSE. INSTRUCTED THAT PT WILL BE NPO POST MIDNIGHT. PATIENT VERBAALAIZED UNDERSTANDING. RN GAVE PAPER AND PEN TO WRITE DOWN URINE OUTPUT.
[2022-01-02 17:35] LABS: BILIRUBIN,URINE NEGATIVE (NEGATIVE); COLOR,URINE YELLOW (YELLOW); LEUKOCYTE ESTERASE ,URINE NEGATIVE (NEGATIVE); NITRITE, URINE NEGATIVE (NEGATIVE); PH,URINE 6.5 (5.0-8.0); PROTEIN,URINE >=300 mg/dl (NEGATIVE); UGLUCOSE 100 MG/DL mg/dL (NEGATIVE); UROBILINOGEN,URINE 0.2 EU/dL (0.2)
[2022-01-02 17:47] LABS: BACTERIA,URINE 1+ /HPF (None Seen); SQUAMOUS EPITHELIAL CELL,UR 0-2 /HPF (None Seen)
[2022-01-02 17:48] LABS: COARSE GRANULAR CASTS,URINE RARE /LPF (None Seen); WAXY CASTS,URINE Few /LPF (None Seen)
--- NOTE | 2022-01-02 18:44 | NUR ---
MS RN CLOSING NOTES: PT IN BED, ALERT AND ORIENTED X 4. NO SOB OR CARDIAC DISTRESS NOTED, APPEARED WEAK BUT DENIES PAIN. IV ACCESS ON RAC G#20 PATENT AND INTACT AND SALINE LOCKED. R CAROTID HD ACCESS NOTED. MAINTAINED SAFETY PRECAUTIONS: BED LOCKED AND IN LOWEST POSITION. CALL LIGHT IN EASY REACH FOR HELP. WILL MONITOR PT ACCORDINGLY. KEPT RESTED AND COMFORTABLE. ENDORSED TO NOC SHIFT FOR THEODORE.
--- NOTE | 2022-01-02 19:30 | NUR ---
RN OPENING NOTE PATIENT IN BED, AWAKE. PATIENT IS ABLE TO MAKE NEEDS KNOWN, A/O X 4. PATIENT IS ON RA, TOLERATING WELL. BREATHING EVEN AND UNLABORED. PATIENT TO BE NPO AFTER MIDNIGHT FOR A BIOPSY IN AM. PATIENT HAS ARAC 20 G PATENT AND INTACT, FLUSHING WELL. PATIENT DENIES ANY PAIN AT THIS TIME, NOT IN ANY APPARENT DISTRESS. SAFETY MEASURES IN PLACE: BED LOCKED AND IN LOWEST POSITION, CALL LIGHT WITHIN REACH, SIDE RAILS UP. WILL MONITOR PATIENT CLOSELY. Addendum: 01/02/22 at 2040 by PAULINE BLAIR RN PATIENT ALSO HAS A R IJ HD ACCESS PRESENT, DRESSING C/D/I.
[2022-01-02 20:00] VITALS: BP 127/86
--- NOTE | 2022-01-02 21:10 | NUR ---
RN NOTE PATIENT HAS A TEMP OF 99.9. OFFERED PATIENT TYLENOL 650 MG TAB BUT HE REFUSES IT. HE SAYS THAT HIS MOM TOLD HIM NOT TO TAKE TYLENOL. EDUCATED PATIENT THAT HE HAS A FEVER AND THAT THE TYLENOL WILL HELP MANAGE HIS TEMP. HE SAYS "I WILL BE OKAY THROUGH THE NIGHT, AND IT IS ALMOST MONDAY". INFORMED PATIENT THAT HE WOULD NEED TO TAKE IT NOW SINCE HE HAS A FEVER AT THIS TIME, STILL REFUSES. OFFERED COOLING MEASURES WELL, BUT DOES NOT WANT TO KEEP ICE PACKS ON OR REMOVE ANY OF HIS BLANKETS. WILL RECHECK TEMP AT A LATER TIME AND MONITOR PATIENT. PATIENT REFUSING THE REMERON TAB WELL.
[2022-01-02] MEDS: ACETAMINOPHEN 325 MG TABLET PO PRN (21:47)
--- NOTE | 2022-01-02 21:47 | NUR ---
RN NOTE RECHECKED TEMP, NOW 100.3 F. OFFERED TYLENOL AGAIN AND PATIENT AGREED TO TAKE IT AT THIS TIME, STILL REFUSES THE REMERON.
[2022-01-02] MEDS: MIRTAZAPINE 15 MG TABLET PO SCH (21:49)
--- NOTE | 2022-01-03 06:51 | NUR ---
RN CLOSING NOTE PATIENT IN BED, EYES CLOSED, EASILY AWAKENED. PATIENT IS ABLE TO MAKE NEEDS KNOWN, A/O X 4. PATIENT IS ON RA, TOLERATING WELL. BREATHING EVEN AND UNLABORED. PATIENT'S NPO STATUS MAINTAINED. PATIENT HAS A RAC 20 G PATENT AND INTACT, FLUSHING WELL. PATIENT ALSO HAS A R IJ HD ACCESS PRESENT, DRESSING C/D/I. PATIENT DENIES ANY PAIN AT THIS TIME, NOT IN ANY APPARENT DISTRESS. SAFETY MEASURES IN PLACE: BED LOCKED AND IN LOWEST POSITION, CALL LIGHT WITHIN REACH, SIDE RAILS UP. ALL NEEDS MET AND ATTENDED. ALL ORDERS CARRIED OUT. WILL ENDORSE TO DAY SHIFT NURSE FOR [facility].
[2022-01-03 07:00] VITALS: BP 132/89
[2022-01-03 07:08] LABS: *BASOS 0 % (Not Estab.); *EOS 5 % (Not Estab.); *EOS, ABSOLUTE 0.2 x10E3/uL (0.0-0.4); *HCT 25.6 % (37.5-51.0); *HGB 8.5 g/dL (13.0-17.7); *IMMATURE GRANULOCYTES 1 % (Not Estab.); *LYMPHOCYTES 8 % (Not Estab.); *LYMPHS, ABSOLUTE 0.4 x10E3/uL (0.7-3.1); *MCH 29.4 pg (26.6-33.0); *MCHC 33.2 g/dL (31.5-35.7); *MCV 89 fL (79-97); *MONOCYTES 6 % (Not Estab.); *MONOS, ABSOLUTE 0.3 x10E3/uL (0.1-0.9); *NEUTROPHILS 80 % (Not Estab.); *PLT 167 x10E3/uL (150-450); *RBC 2.89 x10E6/uL (4.14-5.80); *RDW 12.7 % (11.6-15.4)
[2022-01-03 08:06] LABS: COMPLEMENT C3, SERUM 143 mg/dL (82-167); COMPLEMENT C4, SERUM 34 mg/dL (12-38)
--- NOTE | 2022-01-03 08:50 | NUR ---
RN NOTES RECEIVED PATIENT AWAKE IN BED, EASILY AWAKENED, A&0 X 4, PATIENT ABLE TO MAKE NEEDS KNOWN & COMMUNICATE, GIVEN 2 WARM BLANKETS HE STATED HE WAS COLD, PATIENT ON ROOM AIR , TOLERATING WELL. BREATHING IS EVEN AND UNLABORED. PATIENT'S NPO STATUS MAINTAINED & PT IS COMPLIANT, MD ORDERED STAT PT, PTT, INR, COAGULATION LABS, ORDER PUT INTO eMAR A STAT ORDER, PATIENT HAS A RAC 20 G PATENT AND INTACT, FLUSHING WELL. R IJ HD ACCESS PRESENT, DRESSING C/D/I. PATIENT DENIES ANY PAIN AT THIS TIME, NOT IN ANY APPARENT DISTRESS. SAFETY MEASURES IN PLACE: BED LOCKED AND IN LOWEST POSITION, CALL LIGHT WITHIN REACH, SIDE RAILS UP. ALL NEEDS MET AND ATTENDED. ALL ORDERS CARRIED OUT.
[2022-01-03] MEDS: PANTOPRAZOLE 40 MG TABLET.DR PO SCH (09:01)
[2022-01-03 09:07] LABS: *HGBFRC HEMOGLOBIN A2 2.8 % (1.8-3.2)
[2022-01-03 09:07] LABS: *% CD 4 POS. LYMPH 6.2 % (30.8-58.5); *% CD 8 POS. LYMPH 54.2 % (12.0-35.5); *ABSOLUTE CD 4 HELPER 25 /uL (359-1519); *ABSOLUTE CD 8 SUPPRESSOR 217 /uL (109-897); *ANA ANTI-CENTROMERE B AB <0.2 AI (0.0-0.9); *ANA ANTI-DNA(DS) AB, QN <1 IU/mL (0-9); *ANA ANTI-JO-1 <0.2 AI (0.0-0.9); *ANA ANTICHROMATIN ANTIBODY <0.2 AI (0.0-0.9); *ANA RNP ANTIBODIES <0.2 AI (0.0-0.9); *ANA SJOGREN'S ANTI-SS-A <0.2 AI (0.0-0.9); *ANA SJOGREN'S ANTI-SS-B <0.2 AI (0.0-0.9); *ANAANTI-SCLERODERMA-70 AB <0.2 AI (0.0-0.9); *ANASMITH AB <0.2 AI (0.0-0.9); *CD4/CD8 RATIO 0.11 (0.92-3.72)
[2022-01-03 10:51] VITALS: BP 134/82
--- NOTE | 2022-01-03 11:33 | NUR ---
RN NOTES CANCELLED BIOPSY PER PATIENT REQUEST. EDUCATED PATIENT AND FAMILY REGARDING THE IMPORTANCE OF THE PROCEDURE AND PT STILL REFUSES TO HAVE THE PROCEDURE DONE AND WILL NOT AGREE TO SIGN THE CONSENT. PATHOLOGY NOTIFIED OF THE CANCELLATION, WILL CONTINUE TO HELP TREAT ALL OF PT NEEDS IN A TIMELY MANNER AND PROVIDE COMFORT AND CARE AT THIS TIME.
--- NOTE | 2022-01-03 11:41 | NUR ---
LAB CALLED AND THERE ARE 3 DIFFERENT ORDERS FOR THE LAB SPECIMEN, LAB CANCELLED TWO OF THE ORDERS FROM 3 DIFFERENT DOCTORS AND SPECIMEN IS BEING EVALUATED & PROCESSING FOR THE RESULTS AT THIS TIME. PT GIVEN 2 WARM BLANKERS, WARM WATER, AND HELPED TO REPOSITION PT, MOTHER IS IN THE ROOM HELPING PT COPE WITH SITUATION AT THIS TIME.
--- NOTE | 2022-01-03 11:45 | NUR ---
PATHOLOGY , LAB, MD, RN NATIONAL SALES, AND STAFF COORDINATING BIOPSY NOTIFIED OF PT BEING NON COMPLIANT AND NON COOPERATIVE TO SIGN THE CONSENT FORM. BIOPSY PROCEDURE CANCELLED. WILL CONTINUE TO EDUCATE PT AND TRY TO CONVINCE PT OF UNDERSTANDING THE IMPORTANCE OF IT ALL.
--- NOTE | 2022-01-03 14:02 | NUR ---
FAMILY MEMBER MOTHER BROUGHT IN A ROAST BEEF SANDWICH AND PT IS EATING A SANDWICH AT THIS TIME NO ASPIRATION NOTED, BIOPSY CANCELLED, WILL CONTINUE TO TRY TO EDUCATE AND ENCOURAGE A BIOPSY TO BE AGREED TO , TO GET CONSENT SIGNED AND PERFORMED FOR FUTURE. SISTER AT BED SIDE SHE IS A NURSE TRYING TO HELP PT WELL.
[2022-01-03 16:00] VITALS: BP 135/87
--- NOTE | 2022-01-03 19:35 | NUR ---
RN OPENING NOTE PATIENT IN BED. A/OX4. NO S/S OF DISTRESS, BREATHING WITHOUT DIFFICULTY ON ROOM AIR. RAC #20 SL INTACT AND PATENT. SAFETY MEASURES IN PLACE: BED LOCKED IN PLACE AND AT LOWEST POSITION, RAILS UP X2, CALL AYERS WITHIN REACH. PATIENT STABLE. WILL CONTINUE TO MONITOR.
[2022-01-03 20:00] VITALS: BP 132/88
[2022-01-03] MEDS: MIRTAZAPINE 15 MG TABLET PO SCH (22:00)
[2022-01-04 06:58] LABS: BASOPHILS % (AUTO) 0.3 % (0.0-2.0); EOSINOPHILS % (AUTO) 5.5 % (0.0-6.0); HEMATOCRIT 23 % (39-51); HEMOGLOBIN 7.6 g/dL (13.5-17.5); LYMPHOCYTES # (AUTO) 0.3 K/uL (0.8-4.8); LYMPHOCYTES % (AUTO) 6.6 % (20.0-44.0); MEAN CORPUSCULAR HGB CONC 33 g/dl (31.0-36.0); MEAN CORPUSCULAR VOLUME 90 fL (80-96); MONOCYTES # (AUTO) 0.4 K/uL (0.1-1.30); MONOCYTES % (AUTO) 8.5 % (2.0-12.0); NEUTROPHILS % (AUTO) 79.1 % (43.0-81.0); PLATELET COUNT (AUTO) 172 K/uL (150-450); RED BLOOD CELL COUNT(AUTO) 2.57 MIL/uL (4.5-6.0); WHITE BLOOD COUNT (AUTO) 5.1 K/uL (4.3-11.0)
--- NOTE | 2022-01-04 07:12 | NUR ---
RN CLOSING NOTE PATIENT ASLEEP IN BED. A/OX4. NO S/S OF DISTRESS, BREATHING WITHOUT DIFFICULTY ON ROOM AIR. RAC #20 SL INTACT AND PATENT. SAFETY MEASURES IN PLACE: BED LOCKED IN PLACE AND AT LOWEST POSITION, RAILS UP X2, CALL AYERS WITHIN REACH. WILL ENDORSE TO NEXT SHIFT FOR THEODORE.
[2022-01-04 07:26] LABS: BILIRUBIN,TOTAL 0.2 mg/dL (0.2-1.0); CALCIUM, SERUM 7.7 mg/dL (8.5-10.1); MAGNESIUM 2.3 mg/dL (1.8-2.4); PHOSPHORUS 5.5 mg/dL (2.5-4.9); POTASSIUM 4.1 mmol/L (3.5-5.1); TOTAL PROTEIN, SERUM 5.9 g/dL (6.4-8.2)
--- NOTE | 2022-01-04 07:30 | NUR ---
SECURED CONSENT FOR CT NEEDLE BIOPSY, RENAL. PATIENT VERBALIZED FULL UNDERSTANDING ABOUT THE PROCEDURE. CALLED RADIOLOGY TO ACCOMMODATE PATIENT HOWEVER WILL NOTIFY WHEN AVAILABLE. PATIENT INSTRUCTED FOR NPO TEMPORARILY. AWAITS RADIOLOGY INSTRUCTION FOR POSSIBLE PROCEDURE. CHARGE NURSE AND MD NOTIFIED.
[2022-01-04 07:33] LABS: ALBUMIN 1.2 g/dL (3.4-5.0); CREATININE 12.6 mg/dL (0.6-1.3)
--- NOTE | 2022-01-04 07:45 | NUR ---
RN NOTES - CRITICAL VALUE RANDHAWA REPORTS CREATININE 12.6 AND ALBUMIN 1.2 AT 0734, HEATHER MERCADO HAS BEEN AWARE.
[2022-01-04 08:00] VITALS: BP 121/85
[2022-01-04] MEDS: PANTOPRAZOLE 40 MG TABLET.DR PO SCH (08:15)
[2022-01-04 10:07] LABS: *SPE A/G RATIO 0.4 (0.7-1.7); *SPE ALPHA-1-GLOBULIN 0.4 g/dL (0.0-0.4); *SPE ALPHA-2-GLOBULIN 0.8 g/dL (0.4-1.0); *SPE BETA GLOBULIN 1.2 g/dL (0.7-1.3); *SPE M-SPIKE Not Observed g/dL (Not Observed)
[2022-01-04 13:08] LABS: BAND % (MANUAL) 2 % (0.0-5.0); EOSINOPHILS % (MANUAL) 4 % (0-4); LYMPHOCYTES % (MANUAL) 4 % (16-48); MONOCYTES % (MANUAL) 4 % (0-11.0); NEUTROPHILS % (MANUAL) 86 (42-76)
[2022-01-04 14:07] LABS: CMV, IgM <30.0 AU/mL (0.0-29.9)
--- NOTE | 2022-01-04 18:29 | NUR ---
RN CLOSING NOTE PATIENT ASLEEP IN BED. A/OX4. NO S/S OF DISTRESS, BREATHING WITHOUT DIFFICULTY ON ROOM AIR. RAC #[address] SL INTACT [address] PATENT. [address] NEEDLE BIOPSY WAS NOT DONE AND WAS SCHEDULED FOR TOMORROW. INSTRUCTED PATIENT TO BE ON NPO POST MIDNIGHT. WITH STABLE VITALS, ON STRICT I&O. SAFETY MEASURES IN PLACE: BED LOCKED IN PLACE AND AT LOWEST POSITION, RAILS UP X2, CALL AYERS WITHIN REACH. WILL ENDORSE TO NEXT SHIFT FOR THEODORE.
--- NOTE | 2022-01-04 19:30 | NUR ---
MS ALVARADO OPENING NOTES RECEIVED PATIENT LYING IN BED AWAKE. 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 BREATHING EVEN AND NON-LABORED ON ROOM AIR. NOT IN APPARENT DISTRESS. DENIES PAIN AT THIS TIME. NO IV ACCESS NOTED, PATIENT VERBALIZED HE THINKS IT WAS PULLED OUT WHILE HE WAS ASLEEP. SAFETY MEASURES IN PLACE: BED LOW AND LOCKED, SIDE RAILS UP X2, CALL LIGHT WITHIN REACH. WILL CONTINUE POC. Addendum: 01/04/22 at 2206 by August LEIGH ANN ALVARADO RIGHT INTERNAL JUGULAR HD CATHETER IN PLACE AND DRESSING INTACT.
[2022-01-04 21:04] VITALS: BP 132/90
[2022-01-04] MEDS: MIRTAZAPINE 15 MG TABLET PO SCH (21:55)
--- NOTE | 2022-01-04 21:55 | NUR ---
MS RN NOTES PATIENT IS REQUESTING TO HAVE IV INSERTION DONE TOMORROW. EXPLAINED THAT IT IS IMPORTANT IF ANY EMERGENCY SITUATION ARISES. PATIENT AGREED. IV ACCESS ESTABLISHED, INSERTED #20G ON RIGHT ANTECUBITAL AND SALINE LOCKED. FLUSHING WELL.
--- NOTE | 2022-01-05 06:25 | NUR ---
MS RN CLOSING NOTES PATIENT LYING IN BED COMFORTABLY. A/O X4. CURRENTLY NPO. NO SOB OR NOTED, TOLERATING ROOM AIR WELL. NOT IN ACUTE DISTRESS. NO PAIN OR DISCOMFORT NOTED. AFEBRILE. HAS RIGHT ANTECUBITAL IV ACCESS #20G AND SALINE LOCKED. INTACT, PATENT AND FLUSHING. RIGHT INTERNAL JUGULAR HD CATHETER DRESSING C/D/I. ALL DUE MEDS GIVEN AND NEEDS ATTENDED. SAFETY MEASURES MAINTAINED. WILL ENDORSE TO NEXT SHIFT FOR THEODORE.
[2022-01-05 06:31] LABS: BASOPHILS % (AUTO) 0.4 % (0.0-2.0); EOSINOPHILS % (AUTO) 4.5 % (0.0-6.0); HEMATOCRIT 23 % (39-51); HEMOGLOBIN 7.6 g/dL (13.5-17.5); LYMPHOCYTES # (AUTO) 0.4 K/uL (0.8-4.8); LYMPHOCYTES % (AUTO) 7.4 % (20.0-44.0); MEAN CORPUSCULAR HGB CONC 34 g/dl (31.0-36.0); MEAN CORPUSCULAR VOLUME 89 fL (80-96); MONOCYTES # (AUTO) 0.4 K/uL (0.1-1.30); MONOCYTES % (AUTO) 8.3 % (2.0-12.0); NEUTROPHILS % (AUTO) 79.4 % (43.0-81.0); PLATELET COUNT (AUTO) 173 K/uL (150-450); RED BLOOD CELL COUNT(AUTO) 2.57 MIL/uL (4.5-6.0); WHITE BLOOD COUNT (AUTO) 5.1 K/uL (4.3-11.0)
--- NOTE | 2022-01-05 07:19 | NUR ---
MS RN OPENING NOTES RECEIVED PATIENT LYING IN BED AWAKE. A/O X4. ON ROOM AIR WITH EQUAL AND UNLABORED BREATHING WITH NO APPARENT DISTRESS. DENIES PAIN AT THIS TIME. WITH RIGHT AC G 20 ON SALINE LOCK, PATENT AND INTACT. WITH RIGHT IJ CATH FOR HD ACCESS, WITH TEGADERM, DRY AND INTACT. SAFETY MEASURES IN PLACE: BED LOW AND LOCKED, SIDE RAILS UP X2, CALL LIGHT WITHIN REACH.
[2022-01-05 07:27] LABS: CALCIUM, SERUM 7.6 mg/dL (8.5-10.1); MAGNESIUM 2.3 mg/dL (1.8-2.4); POTASSIUM 4.4 mmol/L (3.5-5.1)
--- NOTE | 2022-01-05 07:40 | NUR ---
MS RN NOTE PATIENT KEPT ON NPO FOR RENAL BIOPSY. HEALTH TEACHING DONE, VERBALIZED UNDERSTANDING AND APPRECIATION. SECURE ATTACHED IN THE CHART.
[2022-01-05 07:42] LABS: PHOSPHORUS 5.3 mg/dL (2.5-4.9)
[2022-01-05 07:49] LABS: CREATININE 14.2 mg/dL (0.6-1.3)
[2022-01-05] MEDS: PANTOPRAZOLE 40 MG TABLET.DR PO SCH (08:01)
--- NOTE | 2022-01-05 10:30 | NUR ---
MS RN NOTE PATIENT WITH ONGOING HD. PATIENT STILL FOR RENAL BIOPSY, KEPT ON NPO. SEEN BY DR. MERCADO, IN STABLE CONDITION. WILL CONTINUE TO MONITOR PATIENT.
--- NOTE | 2022-01-05 13:30 | NUR ---
MS RN NOTE FOLLOW UP MADE FOR BIOPSY, PER RADIOLOGY, THEY NEED A NEW CONSENT FROM THE PATIENT FOR THE BIOPSY SINCE PATIENT REFUSED PREVIOUS SCHEDULED BIOPSY PROCEDURE.
--- NOTE | 2022-01-05 14:20 | NUR ---
MS RN NOTE SECURED CONSENT FOR TODAY'S PROCEDURE AND ATTACHED TO CHART. RADIOLOGIST WAS PICKING UP THE PATIENT BUT PATIENT APPARENTLY WAS REFUSING. I WENT TO CHECK ON THE PATIENT AND HE SAID HE DOESN/T WANT TO DO IT TODAY. HE WAS ALSO MAKING EXCUSES LIKE, HE DRANK. WHEN I TOLD HIM THAT I ONLY GAVE HIM ICE CHIPS AND THAT WE HAVEN'T SERVED HIM ANYTHING, HE SAID THAT HE DOESN'T WANT TO DO IT TODAY AND THAT 'ONE DAY WON'T MAKE ANY DIFFERENCE'. HE SAID HE KNOWS WHAT HE IS DOING. RADIOLOGIST AND CHARGE NURSE NOTIFIED. WHEN CHARGE NURSE WAS ABOUT TO TALK TO HIM, HE DISMISSED HER IMMEDIATELY. DR. MERCADO NOTIFIED.
[2022-01-05] MEDS ORDERED: FENTANYL PF 250MCG/5ML AMPUL IV PRN (14:30)
[2022-01-05] MEDS ORDERED: NALOXONE PREFILLED SYRINGE 2 MG/2 ML SYRINGE IV PRN (14:30)
[2022-01-05] MEDS ORDERED: FLUMAZENIL 0.5 MG VIAL IV PRN (14:30)
[2022-01-05] MEDS ORDERED: MIDAZOLAM HCL 2 MG/2ML VIAL IV PRN (14:30)
[2022-01-05] MEDS ORDERED: ANESTHESIA TRAY IN PYXIS 1 EA TRAY MC ONE (14:30)
[2022-01-05] MEDS: EPOETIN ALFA-EPBX 10,000 UNIT/ML VIAL SQ SCH ×3 (15:00→16:16)
[2022-01-05] MEDS: ATOVAQUONE SUSP 750 MG/5 ML PACKET PO SCH ×3 (16:07→16:49)
--- NOTE | 2022-01-05 16:17 | NUR ---
MS RN NOTES PATIENT REFUSED TAKE MEDICATION ORALLY, AND REFUSED THE MEDICATION SUB Q. HE SAID "EVERYTHING IS NOT GOING TO BE DONE TODAY UNTIL TOMORROW". CHRISTIANO HOLLEY NOTIFIED.
[2022-01-05 16:31] LABS: BAND % (MANUAL) 2 % (0.0-5.0); BASOPHILS % (MANUAL) 0 % (0.0-2.0); EOSINOPHILS % (MANUAL) 1 % (0-4); LYMPHOCYTES % (MANUAL) 9 % (16-48); MONOCYTES % (MANUAL) 6 % (0-11.0); NEUTROPHILS % (MANUAL) 82 (42-76)
--- NOTE | 2022-01-05 19:00 | NUR ---
MS RN CLOSING NOTES PATIENT LYING IN BED AWAKE. A/O X4. ON ROOM AIR WITH EQUAL AND UNLABORED BREATHING WITH NO APPARENT DISTRESS. DENIES PAIN AT THIS TIME. WITH RIGHT AC G 20 ON SALINE LOCK, PATENT AND INTACT. WITH RIGHT IJ CATH FOR HD ACCESS, WITH TEGADERM, DRY AND INTACT. SAFETY MEASURES IN PLACE: BED LOW AND LOCKED, SIDE RAILS UP X2, CALL LIGHT WITHIN REACH. ENDORSED PATIENT TO NEXT SHIFT FOR CONTINUITY OF CARE. STILL FOR POSSIBLE CT GUIDED RENAL BIOPSY AND TUNNELED CATHETER PLACEMENT FOR HD. PATIENT STILL REFUSED TO SIGN CONSENT. HE SAID HE WILL SIGN THE CONSENT TOMORROW. MD AWARE. ENDORSED TO NEXT SHIFT FOR CONTINUITY OF CARE.
[2022-01-05 20:00] VITALS: BP 132/88
--- NOTE | 2022-01-05 20:15 | NUR ---
PATIENT IN BED WATCHING TV. DIAGNOSIS OF ACUTE RENAL FAILURE. A/O X 4 AND ABLE TO MAKE NEEDS KNOWN. HAS A CT NEEDLE BIOPSY SCHEDULED FOR THE MORNING. CONSENTS SIGNED. NPO AFTER MIDNIGHT. PERMACATH PLACEMENT ALSO SCHEDULED FOR THE MORNING BUT PATIENT HAS BEEN REFUSING SIGNING THE CONSENT. HE CURRENTLY HAS DIALYSIS ACCESS TO HIS RIGHT NECK. IV ACCESS TO LEFT AC, 22G. NO SIGNS OF INFILTRATION NOTED. SAFETY MEASURES IN PLACE: BED IN LOWEST, LOCKED POSITION, SIDE RAILS UP X 2, TRAY TABLE AND CALL LIGHT WITHIN REACH. WILL CONTINUE TO MONITOR.
[2022-01-05] MEDS: MIRTAZAPINE 15 MG TABLET PO SCH (21:52)
[2022-01-05 23:06] LABS: *HIV-1 log10 RNA 4.839 (.)
[2022-01-06 06:36] LABS: BILIRUBIN,TOTAL 0.2 mg/dL (0.2-1.0); CALCIUM, SERUM 7.6 mg/dL (8.5-10.1); MAGNESIUM 2.1 mg/dL (1.8-2.4); PHOSPHORUS 4.8 mg/dL (2.5-4.9); POTASSIUM 4.1 mmol/L (3.5-5.1); TOTAL PROTEIN, SERUM 6.1 g/dL (6.4-8.2)
[2022-01-06 06:39] LABS: BASOPHILS % (AUTO) 0.4 % (0.0-2.0); EOSINOPHILS % (AUTO) 3.5 % (0.0-6.0); HEMATOCRIT 22 % (39-51); HEMOGLOBIN 7.3 g/dL (13.5-17.5); LYMPHOCYTES # (AUTO) 0.3 K/uL (0.8-4.8); LYMPHOCYTES % (AUTO) 7.5 % (20.0-44.0); MEAN CORPUSCULAR HGB CONC 34 g/dl (31.0-36.0); MEAN CORPUSCULAR VOLUME 89 fL (80-96); MONOCYTES # (AUTO) 0.4 K/uL (0.1-1.30); MONOCYTES % (AUTO) 9.3 % (2.0-12.0); NEUTROPHILS # (AUTO) 3.6 K/uL (1.8-8.9); NEUTROPHILS % (AUTO) 79.3 % (43.0-81.0); PLATELET COUNT (AUTO) 175 K/uL (150-450); RED BLOOD CELL COUNT(AUTO) 2.46 MIL/uL (4.5-6.0); WHITE BLOOD COUNT (AUTO) 4.6 K/uL (4.3-11.0)
[2022-01-06] MEDS ORDERED: IOHEXOL 240MG/ML 50 ML IV ONE (07:23)
[2022-01-06] MEDS ORDERED: LIDOCAINE 1% INJ 50 ML MDV IJ ONE (07:24)
[2022-01-06] MEDS ORDERED: HEPARIN SODIUM, PORCINE 1,000 UNIT/ML VIAL ONE (07:24)
[2022-01-06] MEDS: PANTOPRAZOLE 40 MG TABLET.DR PO SCH (07:30)
--- NOTE | 2022-01-06 07:50 | NUR ---
RN OPENING NOTES PATIENT AWAKE IN BED RESTING, A/O X 4. NO S/S OF PAIN NOTED AT THIS TIME. ON ROOM AIR, NO DISTRESS OR SHORTNESS OF BREATH NOTED. IV ACCESS RAC #20G, INTACT, PATENT, FLUSHING WELL AND RIGHT IJ HD CATH. FALL AND SAFETY MEASURES IN PLACE, BED ALARM ON, BED IN LOW LOCK POSITION, CALL LIGHT AND TABLE WITHIN EASY REACH, SIDE RAILS UP X2. WILL CONTINUE TO MONITOR.
[2022-01-06 08:00] VITALS: BP 121/85
[2022-01-06 08:21] LABS: CREATININE 9.9 mg/dL (0.6-1.3)
[2022-01-06 08:22] LABS: ALBUMIN 1.2 g/dL (3.4-5.0)
[2022-01-06] MEDS: ATOVAQUONE SUSP 750 MG/5 ML PACKET PO SCH ×2 (08:28→17:26)
--- NOTE | 2022-01-06 08:52 | NUR ---
RN CLOSING NOTE: PATIENT IN BED. A/O X 4 AND ABLE TO MAKE NEEDS KNOWN. BROUGHT DOWN TO SURGERY THIS MORNING FOR PERMACATH PLACEMENT. CONSENT WAS SIGNED THIS MORNING. ALSO HAS A CT NEEDLE BIOPSY SCHEDULED FOR THE MORNING. CONSENTS SIGNED. HAS BEEN NPO SINCE MIDNIGHT. CURRENTLY HAS DIALYSIS ACCESS TO HIS RIGHT NECK. IV ACCESS TO LEFT AC, 22G. NO SIGNS OF INFILTRATION NOTED. SAFETY MEASURES MAINTAINED: BED IN LOWEST, LOCKED POSITION, SIDE RAILS UP X 2, TRAY TABLE AND CALL LIGHT WITHIN REACH. WILL ENDORSE TO NEXT SHIFT FOR THEODORE.
[2022-01-06] MEDS ORDERED: ANESTHESIA TRAY IN PYXIS 1 EA TRAY MC ONE (08:56)
--- NOTE | 2022-01-06 09:00 | NUR ---
RN NOTE PATIENT IS NOT IN HIS ROOM, PATIENT WAS VEHICLE GLASS TECHNICIAN BY OR NURSE. PATIENT WENT FOR A TUNNELED DIALYSIS CATHETER PLACEMENT.
[2022-01-06] MEDS ORDERED: FENTANYL PF 100MCG/2ML AMPUL ONE (09:33)
--- NOTE | 2022-01-06 11:21 | NUR ---
RN NOTE PATIENT IS BACK IN HIS ROOM FROM PROCEDURE. V/S TAKEN, STABLE AND RECORDED. PAIN LEVEL 8/10, PAIN MEDICATION GIVEN. WILL CONTINUE TO MONITOR.
[2022-01-06 11:23] VITALS: BP 124/87
[2022-01-06] MEDS: ANCEF 1 GM/50 ML D5W IV SCH ×2 (17:27)
--- NOTE | 2022-01-06 19:50 | NUR ---
RN CLOSING NOTES PATIENT AWAKE IN BED RESTING, A/O X 4. NO S/S OF PAIN NOTED AT THIS TIME. ON ROOM AIR, NO DISTRESS OR SHORTNESS OF BREATH NOTED. IV ACCESS RAC #20G, INTACT, PATENT, FLUSHING WELL. SCHEDULE MEDICATIONS ADMINISTERED. FALL AND SAFETY MEASURES IN PLACE, BED ALARM ON, BED IN LOW LOCK POSITION, CALL LIGHT AND TABLE WITHIN EASY REACH, SIDE RAILS UP X2. WILL ENDORSE TO ACCESSIBILITY LIFT TECHNICIAN.
[2022-01-06 20:00] VITALS: BP 122/86
[2022-01-06] MEDS: MIRTAZAPINE 15 MG TABLET PO SCH (23:24)
--- NOTE | 2022-01-06 23:25 | NUR ---
REMERON NON ADMINISTERED Indication and possible side effect of Remeron medication explained to patient. Patient refused. Medication returned to pharmacy.
[2022-01-07] MEDS: ANCEF 1 GM/50 ML D5W IV SCH ×2 (02:22)
[2022-01-07 06:21] LABS: BASOPHILS % (AUTO) 0.6 % (0.0-2.0); EOSINOPHILS % (AUTO) 3.5 % (0.0-6.0); HEMATOCRIT 22 % (39-51); HEMOGLOBIN 7.3 g/dL (13.5-17.5); LYMPHOCYTES # (AUTO) 0.3 K/uL (0.8-4.8); LYMPHOCYTES % (AUTO) 6.3 % (20.0-44.0); MEAN CORPUSCULAR HGB CONC 33 g/dl (31.0-36.0); MEAN CORPUSCULAR VOLUME 90 fL (80-96); MONOCYTES # (AUTO) 0.4 K/uL (0.1-1.30); MONOCYTES % (AUTO) 9.4 % (2.0-12.0); NEUTROPHILS # (AUTO) 3.4 K/uL (1.8-8.9); NEUTROPHILS % (AUTO) 80.2 % (43.0-81.0); PLATELET COUNT (AUTO) 183 K/uL (150-450); RED BLOOD CELL COUNT(AUTO) 2.49 MIL/uL (4.5-6.0); WHITE BLOOD COUNT (AUTO) 4.2 K/uL (4.3-11.0)
--- NOTE | 2022-01-07 06:48 | NUR ---
END OF SHIFT REPORT Patient is Alert Oriented x3. Stable on RA. Independent with ambulation. Right AC IV line intact, on IV abx. Afebrile throughout shift. Slept most of the night. Right chest Perma cath intact, dressing clean and dry, no bleed. No c/o pain, no N/V. No BM this shift. Plan outpatient Renal Biopsy as patient refusal procedure. Completed 2nd dose of IV Ancef, no adverse reaction. Will endorse to oncoming RN.
--- NOTE | 2022-01-07 07:00 | NUR ---
MS RN OPENING NOTES PATIENT LAYING IN BED, A/O X 3, ABLE TO MAKE NEEDS KNOWN, TOLERATING WELL ON ROOM AIR WITH NO S/S RESPIRATORY DISTRESS. NO COMPLAINTS OF PAIN OR DISCOMFORT AT THIS TIME. R AC #[address] CLEAN, INTACT, AND FLUSHING WELL. R UPPER CHEST PERMACATH IN PLACE. SAFETY MEASURES IN PLACE: BED IN LOWEST LOCKED POSITION, SIDE RAILS UP X 2, CALL LIGHT WITHIN REACH. WILL CONTINUE TO MONITOR.
[2022-01-07 07:03] LABS: CALCIUM, SERUM 7.4 mg/dL (8.5-10.1); MAGNESIUM 1.9 mg/dL (1.8-2.4); PHOSPHORUS 3.7 mg/dL (2.5-4.9); POTASSIUM 4.3 mmol/L (3.5-5.1)
[2022-01-07] MEDS: PANTOPRAZOLE 40 MG TABLET.DR PO SCH (07:52)
[2022-01-07] MEDS: ATOVAQUONE SUSP 750 MG/5 ML PACKET PO SCH ×2 (08:30→09:00)
[2022-01-07 10:02] LABS: BAND % (MANUAL) 4 % (0.0-5.0); EOSINOPHILS % (MANUAL) 4 % (0-4); LYMPHOCYTES % (MANUAL) 4 % (16-48); MONOCYTES % (MANUAL) 9 % (0-11.0); NEUTROPHILS % (MANUAL) 79 (42-76)
--- NOTE | 2022-01-07 13:54 | NUR ---
MS LAND TITLE EXAMINER NOTES PATIENT MADE AWARE OF MD DISCHARGE ORDERS AND INSTRUCTIONS. PATIENT VERBALIZED UNDERSTANDING OF MD DISCHARGE INSTRUCTIONS AND SIGNED MD DISCHARGE INSTRUCTIONS FORM. PATIENT VERBALIZED POSSESSION OF ALL BELONGINGS AND SIGNED BELONGINGS LIST. IV LINE AND ID BAND REMOVED. ALL HANDOUTS PRINTED AND GIVEN TO PATIENT. PATIENT TRANSPORTED OFF OF UNIT ACCOMPANIED BY COMMERCIAL COLLECTOR AND MOTHER. PATIENT STABLE AT TIME OF DISCHARGE.
== END 2022-01-07 13:50 | disposition home or self-care (01) | DRG 673 ==
LOC: ER 13:53 → MED 18:31
PROVIDERS: ADMIT Nurse Practitioner Acute Care; ATTEND Nurse Practitioner Family
PROC: 30233N1 Transfusion of Nonautologous Red Blood Cells into Peripheral Vein, Percutaneous Approach (ICD-10-PCS; 2021-12-28)
PROC: 5A1D70Z Performance of Urinary Filtration, Intermittent, Less than 6 Hours Per Day (ICD-10-PCS; principal; 2021-12-30)
PROC: 05HY33Z Insertion of Infusion Device into Upper Vein, Percutaneous Approach (ICD-10-PCS; 2021-12-30)
PROC: 0JHD3XZ Insertion of Tunneled Vascular Access Device into Right Upper Arm Subcutaneous Tissue and Fascia, Percutaneous Approach (ICD-10-PCS; 2022-01-06)
PROC: 05HM33Z Insertion of Infusion Device into Right Internal Jugular Vein, Percutaneous Approach (ICD-10-PCS; 2022-01-06)
PROC: B543ZZA Ultrasonography of Right Jugular Veins, Guidance (ICD-10-PCS; 2022-01-06)
DX: N17.0 Acute kidney failure with tubular necrosis (principal); E43 Unspecified severe protein-calorie malnutrition; B20 Human immunodeficiency virus [HIV] disease; Z68.1 Body mass index [BMI] 19.9 or less, adult; R64 Cachexia; E87.1 Hypo-osmolality and hyponatremia; E86.0 Dehydration; Z20.822 Contact with and (suspected) exposure to COVID-19; N18.9 Chronic kidney disease, unspecified; E88.09 Other disorders of plasma-protein metabolism, not elsewhere classified; F12.90 Cannabis use, unspecified, uncomplicated; E83.39 Other disorders of phosphorus metabolism; E86.1 Hypovolemia; R63.0 Anorexia; E87.5 Hyperkalemia; D63.1 Anemia in chronic kidney disease; E83.110 Hereditary hemochromatosis; Z91.14 Patient's other noncompliance with medication regimen; F41.9 Anxiety disorder, unspecified
CPT/HCPCS: 36415; 70450-TC; 71045-TC; 76705-TC; 76770-TC; 80048-TC; 80053-TC; 80076-TC; 81001; 82272-TC; 82550-TC; 82570-TC; 82607-TC; 82668; 82728-TC; 82784; 82962-TC; 83540-TC; 83735-TC; 84100-TC; 84155; 84165; 84300-TC; 84443-TC; 85025-TC; 85045-TC; 85610-TC; 85730-TC; 86225; 86235; 86334; 86360; 86480; 86592; 86593; 86644; 86645; 86704; 86705; 86706; 86709-TC; 86777; 86778; 86803; 86850-TC; 87040-TC; 87081-TC; 87340; 87491; 87536; 87591; 87806; 87899; 90935-TC; C1750; C1757; C1769; C1894; G0378; J0690; J0885; J1644; J2060; J2270; J2704; J3010; J3490; J7030; J7040; J7050; J7060; P9016; Q9966